=== PATIENT | female | born 1995 | race Two or more races ===

== ENCOUNTER → 2019-06-10 | Emergency (ER) | payer OTHER ==
[~2019-06-10] VITALS: Ht 160 cm; Wt 62.6 kg
[~2019-06-10] MED LIST: AUGMENTIN1 TAB.CHE3 PO; CLARINEX2.5 MG/5 M PO; CLARINEX5 MG/TAB PO; PHENABID TAB1 TAB.SA PO; PRELONE15 MG/5 ML PO; PREVACID30 MG PO; PROVENTIL3 ML/2.5 M IH; SINGULAIR 5MG5 MG PO; SINGULAIR5 MG PO; ZANTAC15 MG/ML PO
== END | disposition home or self-care (01) ==
LOC: ER 02:27
DX: R10.13 Epigastric pain (principal)

== ENCOUNTER 2024-12-19 15:05 | Emergency (ER) | payer OTHER ==
[~2024-12-19] VITALS: Ht 160 cm; Wt 79.4 kg
[2024-12-19] MEDS ORDERED: PROAIR RESPICL90 MCG (16:07)
[2024-12-19] MEDS ORDERED: BENZONATATE 100 MG CAPSULE PO STA (16:56)
[2024-12-19] MEDS ORDERED: IPRATROPIUM/ALBUTEROL SULFATE 3 ML AMPUL.NEB IH SCH (17:00)
[2024-12-19] MEDS ORDERED: BUDESONIDE 0.5 MG/2 ML AMPUL.NEB IH SCH (17:15)
[2024-12-19 18:30] LABS: BASO % 0.6 % (0.1-1.2); EOS # 0.19 (0.04-0.54); EOS % 2.0 % (0.7-7.0); LYMPH # 1.79 (1.18-3.74); LYMPH % 18.9 % (19.3-53.1); MEAN PLATELET VOLUME 9.60 fl (9.4-12.4); MONO # 0.67 (0.24-0.82); MONO % 7.1 % (4.7-12.5); NEUT # 6.75 (1.56-6.13); NEUT % 71.2 % (34.0-71.1); RED CELL DISTRIBUTION WIDTH 12.8 % (11.6-14.4)
[2024-12-19] MEDS ORDERED: IPRATROPIUM/ALBUTEROL SULFATE 3 ML AMPUL.NEB IH ONE (18:39)
[2024-12-19] MEDS ORDERED: BUDESONIDE 0.5 MG/2 ML AMPUL.NEB IH ONE (18:39)
[2024-12-19 18:54] LABS: ALT/SGPT 19.0 U/L (12-78); AST/SGOT 14.0 U/L (15-37); BILIRUBIN TOTAL 0.22 mg/dL (0.3-1.2); BUN CREA RATIO 15.0 (7.0-25.0); CREATININE SERUM 0.74 mg/dL (0.55-1.02); GFR 94.14; GLOBULINA 3.4 G/DL (2.4-3.5); GLUCOSE FASTING 128.0 mg/dL (65-100); OSMOLALITY SERUM 282.0 MOSM/KG (275-295)
[2024-12-19 19:10] LABS: COVID-19 AG NEGATIVE (NEGATIVE)
[2024-12-19] MEDS ORDERED: OSEL75CA PO (19:59)
[2024-12-19] MEDS ORDERED: GILTUSS HONEY118 ML PO (19:59)
[2024-12-19] MEDS ORDERED: PULMICORT1 MG/2 ML IH (20:08)
[2024-12-19] MEDS ORDERED: ALBUTEROL1.25 MG/3 IH (20:14)
== END 2024-12-19 20:55 | disposition home or self-care (01) ==
LOC: ER 15:05
PROVIDERS: Preventive Medicine Public Health & General Preventive Medicine
DX: J10.1 Influenza due to other identified influenza virus with other respiratory manifestations (principal); Z20.822 Contact with and (suspected) exposure to COVID-19; Z88.8 Allergy status to other drugs, medicaments and biological substances; Z87.09 Personal history of other diseases of the respiratory system